=== PATIENT | female | born 1930 | race Caucasian/White ===

== ENCOUNTER 2017-08-02 07:26 | Emergency (ER) | payer MEDICARE ==
[~2017-08-02 07:26] MED LIST: ACET-1966 PO; AMLO-96 PO; AMLO-98 PO; AMLO2.5T74 PO; BIS10S PR; CALC-852 PO; CELE200C7 PO; DIAZ2TAB74 PO; DOCU-202 PO; FER325 PO; LID5T TP; LISI-374 PO; LOPE2CAP39 PO; LOR5/325 PO; LOR7.5/325 PO; MEL7.5 PO; METR250 PO; MIRT-22 PO; MOM PO; ONDA4TAB97 PO; OXYC-865 PO; OXYC5TAB38 PO; POLY17PO21 PO; PSYL1PAC24 PO; TRA50 PO; VANC125C2 PO; WAR1 PO; WAR2 PO; [UNRECOGNIZED DRUG - CODE] PO
--- NOTE | 2017-08-02 07:45 | ER Report ---
History and Physical Time Seen By MD: 07:36 Hx. of Stated Complaint: Patient reporting facial swelling for four days. No shortness of breath or angioedema. HPI/ROS CC: Facial swelling and dermatitis HPI: E7-year-old female with past medical history of altered mental status, hyperglycemia, hypertension, dyssomnia, dementia, pubic ramus fracture, humerus fracture, UTI, hysterectomy, hip replacement. Patient comes to the emergency department per POV with circumoral dermatologic rash with swelling of the lips. Patient is pain scale, which is puritic not painful, is 1 out of 10. She denies any difficulty swallowing or breathing. There is no tongue swelling. She is not on an FAROOQ inhibitor. She states that it erupted this morning. The only thing she is using on her face is a Cocca-Butter, which she has been using for years for dry lips and face. It is slightly pruritic. She is somewhat a poor historian. She is accompanied by her . There are no alleviating factors. ROS: 12 point review of systems essentially negative other than what's mentioned in history of present illness. NURSES AND OLD MEDICAL RECORDS: Reviewed PMH: Reviewed SURGICAL HX: Reviewed FAMILY HX: Noncontributory SOCIAL HX: She is lives at home denies smoking alcohol or illicit drugs. VITAL SIGNS: Reviewed CONSTITUTIONAL: 87-year-old female in minimal distress. PHYSICAL EXAM: HEENT: Circumoral and facial dermatitis with lips swelling. Pupils equal round reactive to light and accommodate, EOMI, tympanic membranes pearly white umbo present with good light reflex. Lips dry mucous membranes moist gums nonbleeding uvula midline and rises equally with phonation, oropharynx noninjected, teeth intact. NECK: Neck supple, thyroid not appreciated, anterior and posterior cervical lymphadenopathy not appreciated. Trachea midline and rises equally with phonation. CARDIAC: S1-S2 regular rate rhythm no murmurs rubs or gallops. LUNGS: Lungs clear bilaterally posteriorly in all nieto. Good air movement. ABDOMEN: Abdomen soft, nondistended, bowel sounds active in all 4 quadrants, no bruits noted, no CVA tenderness. MUSCULOSKELETAL: Strength 5 out of 5 x 4 extremities, no deformities noted. NEUROLOGIC: Patient alert and oriented by 3 Allergies: Coded Allergies: amoxicillin (Verified Allergy, Unknown, 02/25/17) clavulanic acid (Verified Allergy, Unknown, 02/25/17) donepezil (Verified Allergy, Unknown, 02/25/17) memantine (Verified Allergy, Unknown, 02/25/17) morphine (Unverified Adverse Reaction, Mild, NAUSEA/VOMITING, 09/22/16) Home Meds Active Scripts Celecoxib (Celecoxib) 200 Mg Capsule, 200 MG PO BID, #60 CAPSULE Prov:NIDIA TINSLEY DO 10/20/16 Amlodipine Besylate (AMLODIPINE BESYLATE) 2.5 Mg Tablet, 2.5 MG PO QDAY, #30 TAB Prov:NIDIA TINSLEY DO 10/20/16 Reported Medications Calcium Carbonate/Vitamin D3 (CALCIUM + VITAMIN D TABLET) Unknown Strength Tablet, PO 02/25/17 Hx Smoking: No Smoking Status: Never Smoker Exposure to Second Hand Smoke?: No Hx Substance Use Disorder: No Hx Alcohol Use: No Constitutional Vital Sign - Last 24 Hours 08/02/17 08/02/17 08/02/17 08/02/17 07:30 07:30 07:31 07:36 Temp 98.6 Pulse 84 81 81 Resp 14 B/P (MAP) 168/103 168/103 (124) Pulse Ox 91 90 94 O2 Delivery Room Air 08/02/17 08/02/17 08/02/17 08/02/17 07:40 07:41 07:46 07:51 Pulse 80 76 79 B/P (MAP) 176/91 (119) Pulse Ox 93 91 08/02/17 08/02/17 08/02/17 08/02/17 07:56 08:00 08:01 08:06 Pulse 73 73 74 B/P (MAP) 162/88 (112) Pulse Ox 92 92 08/02/17 08/02/17 08/02/17 08/02/17 08:11 08:16 08:20 08:21 Pulse 74 72 B/P (MAP) 161/89 (113) Pulse Ox 89 88 91 08/02/17 08/02/17 08/02/17 08/02/17 08:40 08:41 08:46 08:51 Pulse 59 60 65 B/P (MAP) 170/84 (112) Pulse Ox 95 94 94 08/02/17 08/02/17 08/02/17 08/02/17 08:56 09:00 09:01 09:06 Pulse 67 77 67 B/P (MAP) 169/87 (114) Pulse Ox 94 94 95 08/02/17 08/02/17 08/02/17 08/02/17 09:16 09:20 09:21 09:26 Pulse 77 83 87 B/P (MAP) 181/100 (127) Pulse Ox 92 92 93 08/02/17 08/02/17 08/02/17 08/02/17 09:36 09:40 09:41 09:46 Pulse 71 75 63 B/P (MAP) 160/80 (106) Pulse Ox 90 90 90 08/02/17 08/02/17 08/02/17 08/02/17 09:51 09:56 10:00 10:01 Pulse 62 66 B/P (MAP) 158/73 (101) Pulse Ox 90 89 91 08/02/17 08/02/17 08/02/17 08/02/17 10:06 10:11 10:16 10:20 Pulse 64 67 60 B/P (MAP) 144/78 (100) Pulse Ox 91 90 08/02/17 08/02/17 08/02/17 08/02/17 10:21 10:26 10:40 10:41 Pulse 73 76 76 B/P (MAP) 175/92 (119) Pulse Ox 90 87 88 08/02/17 10:42 Temp 98.6 Pulse 83 Resp 14 B/P (MAP) 181/100 (127) Pulse Ox 92 O2 Delivery Room Air Medical Decision Making Data Points Result Diagram: 08/02/17 0740 08/02/17 0740 Laboratory Hematology Test 08/02/17 07:40 08/02/17 08:44 Red Blood Count 5.39 M/uL (4.17-5.56) Mean Corpuscular Volume 92.0 fL (80.0-96.0) Mean Corpuscular Hemoglobin 30.8 pg (26.0-33.0) Mean Corpuscular Hemoglobin Concent 33.4 g/dL (32.0-36.0) Red Cell Distribution Width 13.0 % (11.5-14.5) Mean Platelet Volume 7.1 fL (7.2-11.1) Neutrophils (%) (Auto) 75.0 % (39.4-72.5) Lymphocytes (%) (Auto) 13.3 % (17.6-49.6) Monocytes (%) (Auto) 9.7 % (4.1-12.4) Eosinophils (%) (Auto) 1.1 % (0.4-6.7) Basophils (%) (Auto) 0.9 % (0.3-1.4) Nucleated RBC Relative Count (auto) 0.0 /100WBC Neutrophils # (Auto) 8.5 K/uL (2.0-7.4) Lymphocytes # (Auto) 1.5 K/uL (1.3-3.6) Monocytes # (Auto) 1.1 K/uL (0.3-1.0) Eosinophils # (Auto) 0.1 K/uL (0.0-0.5) Basophils # (Auto) 0.1 K/uL (0.0-0.1) Nucleated RBC Absolute Count (auto) 0.00 K/uL Sodium Level 137 mmol/L (137-145) Potassium Level 3.9 mmol/L (3.5-5.0) Chloride Level 99 mmol/L (98-107) Carbon Dioxide Level 28 mmol/L (22-31) Blood Urea Nitrogen 21 mg/dl (7-18) Creatinine 1.20 mg/dl (0.52-1.04) Glomerular Filtration Rate Calc 42.4 Random Glucose 98 mg/dl (75-110) Calcium Level 9.8 mg/dl (8.4-10.2) Total Bilirubin 0.9 mg/dl (0.2-1.3) Aspartate Amino Transf (AST/SGOT) 25 U/L (0-35) Alanine Aminotransferase (ALT/SGPT) 30 U/L (0-56) Alkaline Phosphatase 107 U/L (0-126) C-Reactive Protein 1.3 mg/dl (<1.0) Total Protein 7.9 gm/dl (6.3-8.2) Albumin 4.1 g/dl (3.5-5.0) Urine Color Straw Urine Clarity Clear Urine pH 7.0 pH (4.8-9.5) Urine Specific [place] 1.006 Urine Protein Negative mg/dL (NEGATIVE) Urine Glucose (UA) Negative mg/dL (NEGATIVE) Urine Ketones Negative mg/dL (NEGATIVE) Urine Blood Negative (NEGATIVE) Urine Nitrite Negative (NEGATIVE) Urine Bilirubin Negative (NEGATIVE) Urine Urobilinogen Negative mg/dL (0.2-1.9) Urine Leukocyte Esterase Negative (NEGATIVE) Urine RBC None /HPF (0-2/HPF) Urine WBC 4 /HPF (0-5/HPF) Urine Squamous Epithelial Cells Few /LPF (</=FEW) Urine Bacteria Negative /HPF (NONE-FEW) Urine Mucus None /HPF (NONE-FEW) Chemistry Test 08/02/17 07:40 08/02/17 08:44 White Blood Count 11.4 k/uL (4.5-11.0) Red Blood Count 5.39 M/uL (4.17-5.56) Hemoglobin 16.6 g/dL (12.0-16.0) Hematocrit 49.6 % (34.0-47.0) Mean Corpuscular Volume 92.0 fL (80.0-96.0) Mean Corpuscular Hemoglobin 30.8 pg (26.0-33.0) Mean Corpuscular Hemoglobin Concent 33.4 g/dL (32.0-36.0) Red Cell Distribution Width 13.0 % (11.5-14.5) Platelet Count 340 K/uL (150-450) Mean Platelet Volume 7.1 fL (7.2-11.1) Neutrophils (%) (Auto) 75.0 % (39.4-72.5) Lymphocytes (%) (Auto) 13.3 % (17.6-49.6) Monocytes (%) (Auto) 9.7 % (4.1-12.4) Eosinophils (%) (Auto) 1.1 % (0.4-6.7) Basophils (%) (Auto) 0.9 % (0.3-1.4) Nucleated RBC Relative Count (auto) 0.0 /100WBC Neutrophils # (Auto) 8.5 K/uL (2.0-7.4) Lymphocytes # (Auto) 1.5 K/uL (1.3-3.6) Monocytes # (Auto) 1.1 K/uL (0.3-1.0) Eosinophils # (Auto) 0.1 K/uL (0.0-0.5) Basophils # (Auto) 0.1 K/uL (0.0-0.1) Nucleated RBC Absolute Count (auto) 0.00 K/uL Glomerular Filtration Rate Calc 42.4 Calcium Level 9.8 mg/dl (8.4-10.2) Total Bilirubin 0.9 mg/dl (0.2-1.3) Aspartate Amino Transf (AST/SGOT) 25 U/L (0-35) Alanine Aminotransferase (ALT/SGPT) 30 U/L (0-56) Alkaline Phosphatase 107 U/L (0-126) C-Reactive Protein 1.3 mg/dl (<1.0) Total Protein 7.9 gm/dl (6.3-8.2) Albumin 4.1 g/dl (3.5-5.0) Urine Color Straw Urine Clarity Clear Urine pH 7.0 pH (4.8-9.5) Urine Specific [place] 1.006 Urine Protein Negative mg/dL (NEGATIVE) Urine Glucose (UA) Negative mg/dL (NEGATIVE) Urine Ketones Negative mg/dL (NEGATIVE) Urine Blood Negative (NEGATIVE) Urine Nitrite Negative (NEGATIVE) Urine Bilirubin Negative (NEGATIVE) Urine Urobilinogen Negative mg/dL (0.2-1.9) Urine Leukocyte Esterase Negative (NEGATIVE) Urine RBC None /HPF (0-2/HPF) Urine WBC 4 /HPF (0-5/HPF) Urine Squamous Epithelial Cells Few /LPF (</=FEW) Urine Bacteria Negative /HPF (NONE-FEW) Urine Mucus None /HPF (NONE-FEW) Urinalysis Test 08/02/17 08:44 Urine Color Straw Urine Clarity Clear Urine pH 7.0 pH (4.8-9.5) Urine Specific [place] 1.006 Urine Protein Negative mg/dL (NEGATIVE) Urine Glucose (UA) Negative mg/dL (NEGATIVE) Urine Ketones Negative mg/dL (NEGATIVE) Urine Blood Negative (NEGATIVE) Urine Nitrite Negative (NEGATIVE) Urine Bilirubin Negative (NEGATIVE) Urine Urobilinogen Negative mg/dL (0.2-1.9) Urine Leukocyte Esterase Negative (NEGATIVE) Urine RBC None /HPF (0-2/HPF) Urine WBC 4 /HPF (0-5/HPF) Urine Squamous Epithelial Cells Few /LPF (</=FEW) Urine Bacteria Negative /HPF (NONE-FEW) Urine Mucus None /HPF (NONE-FEW) ED Course/Re-evaluation ED Course Patient received Decadron 10 mg IV with Benadryl. She is slightly improved. This appears to be contact dermatitis. Re-evaluation 0850: Patient slightly improved on a dermatitis of the face. Medical decision-making includes but is not excluded to contact dermatitis, angioedema. I feel this is angioedema. This is more contact dermatitis. Decision to Disposition Date: Aug 02, 2017 Decision to Disposition Time: 10:46 Depart Departure Latest Vital Signs Vital Signs Date Time Temp Pulse Resp B/P (MAP) Pulse Ox O2 Delivery O2 Flow Rate FiO2 08/02/17 10:42 98.6 83 14 181/100 (127) 92 Room Air Impression: Primary Impression: Contact dermatitis Condition: Improved Disposition: HOME OR SELF-CARE Referrals: BETO MCKINLEY MD (PCP) New Scripts Prednisone 10 Mg Tab (PREDNISONE 10 MG TAB) 10 Mg Tablet 50 MG PO QDAY for 5 Days, TAB Prov: BEATRIZ ALONSO MD 08/02/17 Patient Instructions: Contact Dermatitis (ED) Additional Instructions: You have been given prednisone started tomorrow. Take as directed. Return to the emergency department if they have any further concerns. Try not to put any petroleum jelly products on your face. I and the staff wanted to thank you for allowing us to take care of your needs today in the emergency department at [facility]. We have tried to answer all of your questions and concerns. Please feel free to return to the emergency department for any further concerns or unanswered questions. Problem Qualifiers Primary Impression: Contact dermatitis Contact dermatitis type: allergic Contact dermatitis trigger: unspecified trigger Qualified Codes: L23.9 - Allergic contact dermatitis, unspecified cause BEATRIZ ALONSO MD Aug 02, 2017 07:45
[2017-08-02] MEDS ORDERED: NS(*) 0.9% 1000 ML BAG 1,000 ML IV ONE (07:46)
[2017-08-02] MEDS ORDERED: diphenhydrAMINE 50 MG/ML VIAL IVP ONE (07:50)
[2017-08-02] MEDS ORDERED: FLUSH 10 ML SYR IV ONE (07:50)
[2017-08-02] MEDS ORDERED: DEXAMETHASONE SOD PHOS 10MG/ML IVP ONE (07:50)
[2017-08-02 08:01] LABS: PLATELET COUNT, AUTOMATED 340 K/uL (150-450)
[2017-08-02] MEDS ORDERED: PRED-1 PO (10:52)
[2017-08-02 10:56] VITALS: BP 159/94
== END 2017-08-02 11:09 | disposition home or self-care (01) ==
LOC: ER 07:36
DX: L23.9 Allergic contact dermatitis, unspecified cause (principal)
CPT/HCPCS: 81001; 85025; 86140; 96361; 96374; 96375; 99284; J1100; J1200; J7030; 82040; 82247; 82310; 82374; 82435; 82565; 82947; 84075; 84132; 84155; 84295; 84450; 84460; 84520

== ENCOUNTER → 2017-08-22 | Outpatient (CLI) | payer MEDICARE ==
[~2017-08-22] MED LIST changes: +CELE-1 PO; +PRED-1 PO
[2017-08-22 10:49] LABS: PLATELET COUNT, AUTOMATED 315 K/uL (150-450)
== END ==
LOC: LAB 10:28
PROVIDERS: ATTEND Family Medicine
DX: M81.0 Age-related osteoporosis without current pathological fracture (principal); D75.1 Secondary polycythemia
CPT/HCPCS: 36415; 82306; 85025

== ENCOUNTER → 2018-03-19 | Outpatient (CLI) | payer SELFPAY ==
[~2018-03-19] MED LIST changes: +CHOL10005 PO; +TRIA15CR40 TP
--- NOTE | 2018-03-19 10:11 | RADIOLOGY IMAGING REPORT ---
FACILITY: [facility] PATIENT NAME: Shilpa Duarte : 1930 MR: [id number] V: [id number] EXAM DATE: ORDERING PHYSICIAN: MLIO BENOIT TECHNOLOGIST: Location: [facility] Patient: Shilpa Duarte : 1930 Visit/Account:[id number] Date of Sevice: 03/19/2018 DEXA Scan Clinical history: Osteoporosis. Comparison: DEXA scan from 05/15/2012. LUMBAR SPINE: The bone mineral density (BMD) measured from L1-L4 correlates with a Z-score of 0.2 and a T-score of -2.5 which is osteoporosis as defined by the World Health Organization. The corresponding risk of fr acture in the lumbar spine is 6 times increased compared with a young adult reference population. Th is value has decrease by 7.4 % since the prior study. More than 5% change is considered significant. HIP: Bone mineral density (BMD) measured in the RIGHT total hip region correlates with a Z-score by 0.6 an d a T-score of 13.2 which is osteoporosis as defined by the World Health Organization. The correspon ding risk of fracture in the hip is 8-12 times increased compared to a young adult reference populati on. This value has decrease by 15.4 % since the prior study. More than 5% change is considered signi ficant. T score left femoral neck -2.9 Bone mineral density (BMD) measured in the Femoral Neck region measures 0.641 g/cm?. IMPRESSION: 1. Lumbar spine: Osteoporosis. There has been 7.4% decrease in the bone mineral density since the p revious exam. 2. Right Total Hip: Osteoporosis. There has been 15.4% decrease in the bone mineral density since t he previous exam. 3. Femoral Neck: Bone Mineral Density is 0.641 g/cm? The next DEXA scan of this patient should include the following sites: L1-L4 and the right hip. FRAX? WHO Fracture Risk Assessment Tool link: <http://www.shef.ac.uk/FRAX/tool.jsp?[email or web address]> PLEASE NOTE: 1) The World Health Organization defines low BMD as follows: T-score Normal > -1 Osteopenia < -1 and > -2.5 Osteoporosis < -2.5 without fractures Established osteoporosis < -2.5 with fractures 2) In general, you may wish to consider: Diagnosis Treatment Follow-up DEXA Normal BMD Prevention 2-3 years Osteopenia Prevention/therapy 1-2 years Osteoporosis Therapy Yearly 3) Fracture risk estimated from the T-score is more accurate for vertebral fractures (often spontane ous) than for hip fractures. Report Dictated By: Jennifer Harrington MD at 03/19/2018 10:05 AM Report E-Signed By: Jennifer Harrington MD at 03/19/2018 10:07 AM KISHORN:AMIBRIANVSteven
== END ==
LOC: RAD 00:33
PROVIDERS: ATTEND Family Medicine
DX: M81.0 Age-related osteoporosis without current pathological fracture (principal)
CPT/HCPCS: 77080

== ENCOUNTER → 2018-10-06 | Outpatient (CLI) | payer MEDICARE ==
[~2018-10-06] MED LIST changes: +AMLO-125 PO; -AMLO-96 PO; -AMLO2.5T74 PO; +AMLO2.5T78 PO; +ASPI-757 PO; +CALC-515 PO; +DEN60I SUBQ; +GUAI237L36 PO; +LOPE2CAP15 PO; +MAG-65 PO; +POLY17PO11 PO; -POLY17PO21 PO; +QUET25TA30 PO
== END ==
LOC: ZZSPRING 02:58
PROVIDERS: ATTEND Family Medicine
DX: M81.0 Age-related osteoporosis without current pathological fracture (principal); I10 Essential (primary) hypertension
CPT/HCPCS: 36415; 82310; 82374; 82435; 82565; 82947; 84132; 84295; 84520; 85027

== ENCOUNTER → 2018-10-13 | Outpatient (REF) | payer MEDICARE | LOC: ZZSPRING 08:46 | PROVIDERS: ATTEND Family Medicine | DX: M81.0 Age-related osteoporosis without current pathological fracture (principal); I10 Essential (primary) hypertension | CPT/HCPCS: 36415; 82306 ==